=== PATIENT | female | born 1965 | race Caucasian/White ===

== ENCOUNTER 2021-12-17 01:00 | Day surgery (SDC) | payer MEDICARE, MEDICAID, SELFPAY ==
--- NOTE | 2021-12-14 08:13 | PM.IMHP ---
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 She presents for a bulking agent. She understands it will not help her overactive bladder symptoms. Review of Systems Review of Systems: All systems reviewed & are unremarkable except as noted in HPI and below Exam Narrative: No acute distress Normal breathing Alert oriented x3 No urethral mobility Assessment and Plan Assessment and plan (1) Intrinsic sphincter deficiency (ISD): Code(s): N36.42 - Intrinsic sphincter deficiency (ISD) Status: Acute Assessment and Plan: Cystoscopy with injection of bulking agent. Understand the risks of bleeding, infection, lack of efficacy, urinary retention, need for repeat procedures. Agrees to proceed
[2021-12-14 13:59] VITALS: BMI 30.2
--- NOTE | 2021-12-14 14:08 | PC.NURSE ---
Report to the Outpatient Waiting Room, entrance under the green pavilion located off [facility], at time _0830_ on date _[id number]_. OR Time: _1030_. Time changes happen often and if your time is changed the preop area will call you the afternoon before. - You and your visitor will be asked to self-screen and do not enter if you have any COVID symptoms. - Only one visitor and NO children visitors are allowed at this time. - The patient visitor is requested to leave or wait in car when not with patient due to restrictions. - A mask is required within the hospital. Patients may have clear liquids (water, carbonated beverages, clear teas, apple juice) until 3 hours prior to surgery with a maximum of 20 ounces. - No food from midnight until time of surgery Take the following medications with a SIP of water the morning of surgery: __Clonazepam and inhalers Medications to discontinue per physician Mulitvitamin and fish oil. Date to take last dose____Stop today. Please no make-up, nail nepalese, hairspray, perfume, deodorant, or body powder the day of surgery. No jewelry (including any body piercings) or valuables the day of surgery, leave them at home. Please take a shower or bath the night before, or the morning of, surgery with an antibacterial soap. Wear comfortable, loose fitting clothing. - Jewelry must be removed prior to entering the operating room. Rings and piercings that are not removed may be cut off. - The hospital will not accept responsibility for valuables. - Please leave all valuables, including medications, at home the day of surgery. If you are going home after surgery, a licensed uke driver must drive you home. - NO public transportation without another adult. - We recommend that an adult stay with you for 24 hours following discharge. - We also recommend that you do not drive, make important decision, drink alcoholic beverages, or take any drugs that were not prescribed by your health care provider for at least 24 hours after your discharge time. Follow any additional instructions given to you from your surgeon. If you or anyone in your household have experienced Covid symptoms in the past week, please notify your surgeon or the nurse liaison at the phone number below for possible testing. Telephone instructions given to __Patient___and asked if any additional questions and then verbalized understanding. Patient advised to call surgeon office or pre surgery nurse liaison [phone] if any additional questions.
--- NOTE | 2021-12-17 07:13 | WPDHPUPDATE1 ---
History and Physical Update Update Date/Time: 12/17/21 07:13 History and Physical has been reviewed, including an updated exam of the patient. There are NO changes in the patient's condition. Risks, benefits, and alternatives have been discussed and questions answered. Patient agrees to proceed with procedure.
--- NOTE | 2021-12-17 10:09 | WPDANESEPPF ---
Anes - Initial Pre Proc Eval Procedure: Operation Date: 12/17/21 10:30 Proposed Procedures p Cystoscopy, Injection Bulkamid - Jose Roldan MD Date/Time: 12/17/21 10:09 Surgeon: Jose Roldan MD Pre Op Diagnosis: intrinsic sphincter deficiency Patient Data Age: 56 Gender: F Height: 1.57 m Weight: 76.7 kg Allergies Allergy/AdvReac Type Severity Reaction Status Date / Time No Known Allergies Allergy Verified 12/17/21 08:48 Home Medications Medication Instructions Recorded Confirmed Type atorvastatin 80 mg tablet 80 mg PO QPM 12/14/21 12/17/21 History budesonide-formoterol HFA 80 2 inh inhalation BID 12/14/21 12/17/21 History mcg-4.5 mcg/actuation aerosol inhaler clonazepam 0.5 mg tablet 0.5 mg PO TID PRN Anxiety 12/14/21 12/17/21 History divalproex 500 mg tablet,extended 500 mg PO BID 12/14/21 12/17/21 History release 24 hr fluoxetine 20 mg capsule 60 mg PO QAM 12/14/21 12/17/21 History ipratropium 0.5 mg-albuterol 3 mg 3 ml inhalation BID 12/14/21 12/17/21 History (2.5 mg base)/3 mL nebulization soln lisinopril 10 mg tablet 10 mg PO DAILY 12/14/21 12/17/21 History multivitamin 1 tablet PO DAILY 12/14/21 12/17/21 History omega-3 fatty acids-vitamin E 1 cap PO BID 12/14/21 12/17/21 History 1,000 mg capsule trazodone 50 mg tablet 50 mg PO HS 12/14/21 12/17/21 History Patient hx anesthesia problems: none Family hx anesthesia problems: none Results Review: All pre-operative results and documents have been reviewed as part of the pre-operative evaluation. [facility] Past Medical History Medical History (Updated 12/17/21 @ 10:10 by Uriel Perez MD) COPD (chronic obstructive pulmonary disease) Obesity KIRSTEN (obstructive sleep apnea) Social History Social History Smoking packs per day: 1 Smoking cigarettes per day: 20.0 Years smoked: 40 Smoking pack-years: 40.00 Smoking status: Current every day smoker Tobacco type: cigarettes Living arrangements: with family Spiritual care concerns: No Anes - Eval Final PreProcedure Day of Procedure 12/17/21 10:09 Patient weight: obese Heart: regular rate and rhythm Lungs: clear to auscultation Airway: Mallampati scale class II Neurological: alert and oriented Last oral intake: >/= 8 hours ASA classification: III Emergent: no Anesthetic plan: proceed Anesthesia type and monitoring: general GIVS and standard monitoring Results Review: All pre-operative results and documents have been reviewed as part of the pre-operative evaluation. Informed Consent: The patient's anesthetic plan and its attendant risks and benefits were discussed with the patient/family/POA. Questions were solicited and answers provided to the satisfaction of the patient/family/POA.
[2021-12-17] MEDS: ceFAZolin 2 GM/D5W 50 ML 2 GM/50 ML BAG IVPB (10:34)
[2021-12-17] MEDS: LIDOCAINE HCL 2% GEL UROJET 10 ML PKG MUCOUS MEM (10:48)
--- NOTE | 2021-12-17 10:58 | P.OP_ITS ---
Procedure Note - Detailed Date of Procedure 12/17/21 Pre-op Diagnosis intrinsic sphincter deficiency Post-op Diagnosis Same Procedure Performed Cystoscopy with suburethral injection of implant material [id number] Surgeon Jose Roldan MD Anesthesia MAC Indications This is a patient with stress urinary incontinence due to intrinsic sphincter deficiency. They desires surgical correction. They understand the risk of bleeding, and infection, lack of efficacy, need for repeat procedures, obstructive voiding requiring catheterization. They agreed to proceed. Findings Open urethra consistent with intrinsic sphincter deficiency Description of Procedure The patient was correctly identified and informed consent was obtained. They were brought to the operating room. They were given MAC anesthesia. They were placed in the dorsal lithotomy position. They were prepped and draped in a sterile fashion. A time-out performed. Cystoscopy revealed no tumors in the bladder and an open urethra consistent with intrinsic sphincter deficiency. I chose at a site in the mid urethra. It was 2 cm distal bladder neck. I injected the bulking agent circumferentially forming small pillows. I used 1- 1/2 syringe of bulking material total. There was good bulking effect. The bladder was drained partially with a 12 Macedonian red rubber catheter. They were awakened and transferred to the PACU in stable condition. Implants Urethral bulking agent Estimated Blood Loss 1 Drains No Packing No Pathology None sent Complications No immediate complications Condition Stable Disposition PACU
[2021-12-17 11:03] VITALS: BP 132/73; PULSE 83; RESP 14; O2SAT 100
[2021-12-17] MEDS: LACTATED RINGERS 1,000 ML 30 ML IV CONT (11:03)
[2021-12-17 11:30] VITALS: BP 142/80; PULSE 75; RESP 16
== END 2021-12-17 11:52 | disposition home or self-care (01) ==
PROVIDERS: Visit Provider Urology
PROC: 3E0K8GC Introduction of Other Therapeutic Substance into Genitourinary Tract, Via Natural or Artificial Opening Endoscopic (ICD-10-PCS; CPT 51715; principal; 2021-12-17 10:30)
DX: N36.42 Intrinsic sphincter deficiency (ISD) (principal); N39.3 Stress incontinence (female) (male); J44.9 Chronic obstructive pulmonary disease, unspecified; G47.33 Obstructive sleep apnea (adult) (pediatric); E66.9 Obesity, unspecified; Z68.30 Body mass index [BMI] 30.0-30.9, adult; F17.210 Nicotine dependence, cigarettes, uncomplicated; Z79.51 Long term (current) use of inhaled steroids
CPT/HCPCS: 51715; A9270; J0690; J2250; J2405; J2704; J3010; J7120; L8606

== ENCOUNTER 2023-09-02 12:44 | Inpatient (IN) | payer MEDICARE, MEDICAID, SELFPAY ==
[2023-09-02 13:18] VITALS: BP 133/83; PULSE 74; RESP 14; TEMP 36.3; O2SAT 97
--- NOTE | 2023-09-02 13:46 | PC.NURSE ---
Pt arrived at 1300 to 2nd floor. She is here for the swing program for assistance with balance and walking. VSS, no skin issues noted. Pt A/O x3. oriented to call system . Pt's daughter is here with pt. Oriented her to the rapid responce system and fall risks.
[2023-09-02 14:00] VITALS: BP 138/73; PULSE 78; RESP 14; TEMP 36.3; O2SAT 97
[2023-09-02 14:11] VITALS: BMI 29.0
--- NOTE | 2023-09-02 14:41 | PC.NURSE ---
Pt does have type 2 diabetis . Accu checks are BID.
[2023-09-02 16:55] LABS: Glucose Point of Care 93 mg/dl (65-105)
[2023-09-02] MEDS: ATORVASTATIN 40 MG TABLET 80 MG PO (17:25)
[2023-09-02] MEDS: OMEGA 3 POLYUNSAT FATTY ACIDS 1 GM CAP PO (17:25)
[2023-09-02] MEDS: GABAPENTIN 400 MG CAPSULE 1200 MG PO (17:25)
[2023-09-02] MEDS: traZODone HCL 50 MG TABLET 250 MG PO (20:38)
[2023-09-02] MEDS: busPIRone HCL 2.5 MG TABLET PO (20:39)
[2023-09-02] MEDS: busPIRone HCL 2.5 MG TABLET 7.5 MG PO (20:39)
[2023-09-02] MEDS: DIVALPROEX SODIUM ER 250 MG TAB.24H PO (20:40)
[2023-09-02] MEDS: DIVALPROEX SODIUM DR 250 MG TABEC 1500 MG PO (20:41)
[2023-09-02] MEDS: QUEtiapine FUMARATE 25 MG TABLET 50 MG BY MOUTH (20:41)
[2023-09-02 20:56] LABS: Glucose Point of Care 108 mg/dl (65-105)
[2023-09-02] MEDS: ACETAMINOPHEN 500 MG TABLET 1000 MG PO (22:34)
[2023-09-02 23:33] VITALS: BP 142/76; PULSE 78; RESP 17; TEMP 36.2; O2SAT 97
[2023-09-03 05:29] LABS: Hematocrit 38.9 % (35.0-49.0); Hemoglobin 12.5 g/dL (12.0-15.0); Mean Corpuscular HGB Conc 32.1 g/dL (32-36); Mean Corpuscular Hemoglobin 29.1 pg (27.0-31.0); Mean Corpuscular Volume 90.7 fL (78.0-102.0); Mean Platelet Volume 8.5 fl (9.2-11.8); Platelet Count Result 197 K/mm3 (150-420); Red Blood Count 4.29 M/mm3 (4.20-5.40); Red Cell Distribution Width 14.2 % (11.6-14.4)
[2023-09-03 05:39] LABS: Anion Gap 5 mmol/L (4-12); Blood Urea Nitrogen 12 mg/dL (7-18); Calcium 8.3 mg/dL (8.5-10.1); Carbon Dioxide 32 mmol/L (21-32); Chloride 101 mmol/L (98-108); Estimated CRCL calculation 63 ml/min; Estimated Glomerular Filt Rate > 60; Glucose 102 mg/dL (70-99); Osmolality Calculated 285 mOsm/kg (285-295); Potassium 4.2 mmol/L (3.5-5.1); Sodium 138 mmol/L (136-145)
[2023-09-03 07:23] LABS: Glucose Point of Care 102 mg/dl (65-105)
--- NOTE | 2023-09-03 07:37 | PM.IMHP ---
H&P: HPI History of Present Illness Date/Time: 09/03/23 07:37 Chief Complaint: Rehab, weakness Narrative: This is a 58-year-old female with a past medical history significant for ductal cancer of the breast, depression, anxiety, bipolar disorder, COPD, hypertension, GERD, neuropathy, KIRSTEN, and PTSD who presents to [facility] for swing bed after hospitalization at [place] in [place]. For the patient she presented last week after having 6-8 falls at home. Her falls were precipitated by dizziness, right-sided chest pain, and shortness of breath. She denies LOC and denies hitting her head. She lives at home with her 2 sons were able to help get her up from the floor. Review of her chart shows syncopal and stroke workup which was negative. She also states she was told she was diagnosed as a diabetic. Given her weakness and frequent falls therapy recommended fpc. Patient will be admitted under swing bed status in this setting. Review of Systems Review of Systems: All systems reviewed & are unremarkable except as noted in HPI and below PMFSH Past Medical History Medical History (Updated 09/03/23 @ 17:44 by Edith Ruiz APRN) Anxiety Bipolar 1 disorder delivery delivered COPD (chronic obstructive pulmonary disease) Depression Ductal carcinoma of breast GERD (gastroesophageal reflux disease) Neuropathy Obesity KIRSTEN (obstructive sleep apnea) Trigger finger Surgical History Surgical History (Updated 09/03/23 @ 17:29 by Edith Ruiz APRN) H/O elbow surgery H/O left wrist surgery History of appendectomy History of bilateral carpal tunnel release History of bilateral knee replacement Family History Family History Mother Chronic obstructive pulmonary disease Father Acute myocardial infarction Social History Social History (Updated 09/03/23 @ 17:31 by Edith Ruiz APRN) Social History: Patient states she stopped smoking when she was admitted last week 08/27/23. Surrogate decision maker is her daughter, Kira. Full code Smoking packs per day: 1 Smoking cigarettes per day: 20.0 Years smoked: 40 Smoking pack-years: 40.00 Smoking status: Former smoker Tobacco type: cigarettes Second hand tobacco smoke exposure: No Alcohol intake: never Substance use: never Substance use type: does not use Do You Feel Safe in your Home?: Yes Lack of Transportation: No Lack of Food: Never True Current Housing: I Have Housing Concerned About Future Housing: No Difficulty Paying Gas/Electric Bills: No Difficulty Paying for Meds: No Currently Unemployed: No Education: High School Diploma/GED Difficulty w/ Childcare or Family Care: No Living arrangements: with family Additional living arrangements comments: lives with her 2 sons. She is independent of ADLs, she does use a walker, she does not drive. Occupation/Education: unemployed Gender identity (if verbalized by the patient): Female Sexual Orientation (if Verbalized by the Patient): Straight or Heterosexual Spiritual care concerns: No Meds Home Medications and Allergies Home Medications Medication Instructions Recorded Confirmed Type atorvastatin 80 mg tablet 80 mg PO QPM 12/14/21 09/02/23 History divalproex 500 mg tablet,extended 250 mg PO BID 12/14/21 09/02/23 History release 24 hr fluoxetine 20 mg capsule 60 mg PO QAM 12/14/21 09/02/23 History lisinopril 10 mg tablet 10 mg PO DAILY 12/14/21 09/02/23 History multivitamin 1 tablet PO DAILY 12/14/21 09/02/23 History omega-3 fatty acids-vitamin E 1 cap PO BID 12/14/21 09/02/23 History 1,000 mg capsule trazodone 50 mg tablet 250 mg PO HS 12/14/21 09/02/23 History albuterol sulfate 90 mcg/actuation 2 puff inhalation QID PRN 09/02/23 09/02/23 History aerosol inhaler Shortness Of Breath Or Wheezing anastrozole 1 mg tablet 1 mg PO DAILY 09/02/23 09/02/23 His
[2023-09-03 08:00] VITALS: BP 120/68; PULSE 72; RESP 17; TEMP 36.2; O2SAT 98
[2023-09-03] MEDS: OMEGA 3 POLYUNSAT FATTY ACIDS 1 GM CAP PO ×2 (09:53→17:26)
[2023-09-03] MEDS: MULTIVITAMINS THERAPEUTIC TAB (*BKC) 1 TABLET PO (09:53)
[2023-09-03] MEDS: FLUoxetine HCL 20 MG CAPSULE 60 MG PO (09:53)
[2023-09-03] MEDS: busPIRone HCL 2.5 MG TABLET 7.5 MG PO (09:53)
[2023-09-03] MEDS: GABAPENTIN 400 MG CAPSULE 1200 MG PO ×3 (09:53→17:24)
[2023-09-03] MEDS: busPIRone HCL 2.5 MG TABLET PO (09:53)
[2023-09-03 09:54] VITALS: PULSE 72
[2023-09-03] MEDS: ASPIRIN 81 MG ENTERIC TABLET PO (09:54)
[2023-09-03] MEDS: PANTOPRAZOLE 40 MG TABLET PO (09:54)
[2023-09-03] MEDS: lisinopriL 10 MG TABLET PO (09:54)
[2023-09-03] MEDS: METOPROLOL SUCCINATE EXT REL 25 MG TABCR PO (09:54)
[2023-09-03] MEDS: ANASTROZOLE (*CHEMO) 1 MG TABLET PO (09:54)
[2023-09-03] MEDS: buPROPion HCL XL (24 HR) 150 MG TABCR PO (09:54)
--- NOTE | 2023-09-03 10:10 | PHAR ---
VERIFIED WITH [facility] PT TAKES BOTH DEPAKOTE ER 250MG QHS AND DEPAKOTE DR 1500MG QHS. AND TAKES ONLY BUSPIRONE 7.5MG Q12H, NOT THE ADDITIONAL 2.5MG Q12H THAT WAS ENTERED INPT RX.
[2023-09-03 12:04] LABS: Glucose Point of Care 91 mg/dl (65-105)
[2023-09-03 16:00] VITALS: BP 110/74; PULSE 66; RESP 17; TEMP 36.1; O2SAT 96
[2023-09-03 17:00] LABS: Glucose Point of Care 102 mg/dl (65-105)
[2023-09-03] MEDS: ATORVASTATIN 40 MG TABLET 80 MG PO (17:25)
[2023-09-03] MEDS: DIVALPROEX SODIUM DR 250 MG TABEC 1500 MG PO (20:52)
[2023-09-03] MEDS: busPIRone HCL 2.5 MG, busPIRone HCL 5 MG 7.5 MG PO (20:54)
[2023-09-03] MEDS: traZODone HCL 50 MG TABLET 250 MG PO (20:55)
[2023-09-03] MEDS: QUEtiapine FUMARATE 25 MG TABLET 50 MG BY MOUTH (20:55)
[2023-09-03] MEDS: DIVALPROEX SODIUM ER 250 MG TAB.24H PO (20:56)
[2023-09-03 20:57] LABS: Glucose Point of Care 137 mg/dl (65-105)
[2023-09-03 23:56] VITALS: BP 136/76; PULSE 76; RESP 20; TEMP 36.2; O2SAT 95
[2023-09-04 07:25] LABS: Glucose Point of Care 83 mg/dl (65-105)
[2023-09-04 07:28] VITALS: BP 111/76; PULSE 67; RESP 16; TEMP 36.1; O2SAT 95
[2023-09-04] MEDS: ENOXAPARIN 40 MG/0.4 ML SYRINGE SUB-Q (08:04)
[2023-09-04] MEDS: OMEGA 3 POLYUNSAT FATTY ACIDS 1 GM CAP PO ×2 (08:05→17:10)
[2023-09-04] MEDS: PANTOPRAZOLE 40 MG TABLET PO (08:06)
[2023-09-04] MEDS: GABAPENTIN 400 MG CAPSULE 1200 MG PO ×3 (08:06→17:09)
[2023-09-04] MEDS: ASPIRIN 81 MG ENTERIC TABLET PO (08:07)
[2023-09-04] MEDS: busPIRone HCL 2.5 MG, busPIRone HCL 5 MG 7.5 MG PO ×2 (08:07→20:49)
[2023-09-04] MEDS: MULTIVITAMINS THERAPEUTIC TAB (*BKC) 1 TABLET PO (08:07)
[2023-09-04] MEDS: buPROPion HCL XL (24 HR) 150 MG TABCR PO (08:08)
[2023-09-04 08:09] VITALS: PULSE 67
[2023-09-04] MEDS: lisinopriL 10 MG TABLET PO (08:09)
[2023-09-04] MEDS: FLUoxetine HCL 20 MG CAPSULE 60 MG PO (08:09)
[2023-09-04] MEDS: METOPROLOL SUCCINATE EXT REL 25 MG TABCR PO (08:09)
[2023-09-04] MEDS: ANASTROZOLE (*CHEMO) 1 MG TABLET PO (08:10)
[2023-09-04] MEDS: FLUTICASONE/UMECLIDIN/VILANTER 100-62.5-25 MCG ELLIPTA 1 PUFF INHALATION (08:17)
[2023-09-04 11:52] LABS: Glucose Point of Care 107 mg/dl (65-105)
[2023-09-04] MEDS: ACETAMINOPHEN 500 MG TABLET 1000 MG PO ×2 (13:02→20:50)
[2023-09-04 16:00] VITALS: BP 142/68; PULSE 65; RESP 16; TEMP 36.4; O2SAT 96
[2023-09-04] MEDS: ATORVASTATIN 40 MG TABLET 80 MG PO (17:08)
[2023-09-04 17:19] LABS: Glucose Point of Care 115 mg/dl (65-105)
[2023-09-04 20:00] VITALS: PULSE 65; RESP 16; O2SAT 96
[2023-09-04] MEDS: traZODone HCL 50 MG TABLET 250 MG PO (20:47)
[2023-09-04] MEDS: DIVALPROEX SODIUM DR 250 MG TABEC 1500 MG PO (20:48)
[2023-09-04] MEDS: QUEtiapine FUMARATE 25 MG TABLET 50 MG BY MOUTH (20:48)
[2023-09-04 20:52] LABS: Glucose Point of Care 112 mg/dl (65-105)
[2023-09-04] MEDS: DIVALPROEX SODIUM ER 250 MG TAB.24H PO (20:57)
[2023-09-05] VITALS: BP 150/69; PULSE 65; RESP 20; TEMP 36.6; O2SAT 95
[2023-09-05 07:43] LABS: Glucose Point of Care 99 mg/dl (65-105)
[2023-09-05 08:00] VITALS: BP 132/72; PULSE 67; RESP 16; TEMP 36.2; O2SAT 97
[2023-09-05] MEDS: ENOXAPARIN 40 MG/0.4 ML SYRINGE SUB-Q (08:42)
[2023-09-05] MEDS: FLUTICASONE/UMECLIDIN/VILANTER 100-62.5-25 MCG ELLIPTA 1 PUFF INHALATION (08:42)
[2023-09-05] MEDS: FLUoxetine HCL 20 MG CAPSULE 60 MG PO (08:43)
[2023-09-05] MEDS: OMEGA 3 POLYUNSAT FATTY ACIDS 1 GM CAP PO ×2 (08:43→16:41)
[2023-09-05] MEDS: PANTOPRAZOLE 40 MG TABLET PO (08:44)
[2023-09-05] MEDS: GABAPENTIN 400 MG CAPSULE 1200 MG PO ×3 (08:45→16:40)
[2023-09-05] MEDS: lisinopriL 10 MG TABLET PO (08:45)
[2023-09-05] MEDS: buPROPion HCL XL (24 HR) 150 MG TABCR PO (08:45)
[2023-09-05 08:46] VITALS: PULSE 67
[2023-09-05] MEDS: ASPIRIN 81 MG ENTERIC TABLET PO (08:46)
[2023-09-05] MEDS: METOPROLOL SUCCINATE EXT REL 25 MG TABCR PO (08:46)
[2023-09-05] MEDS: ANASTROZOLE (*CHEMO) 1 MG TABLET PO (08:47)
[2023-09-05] MEDS: busPIRone HCL 2.5 MG, busPIRone HCL 5 MG 7.5 MG PO ×2 (08:47→21:00)
[2023-09-05] MEDS: MULTIVITAMINS THERAPEUTIC TAB (*BKC) 1 TABLET PO (08:48)
[2023-09-05 16:00] VITALS: BP 165/96; PULSE 60; RESP 16; TEMP 36; O2SAT 97
[2023-09-05] MEDS: ATORVASTATIN 40 MG TABLET 80 MG PO (16:41)
[2023-09-05] MEDS: DIVALPROEX SODIUM DR 250 MG TABEC 1500 MG PO (20:59)
[2023-09-05] MEDS: traZODone HCL 50 MG TABLET 250 MG PO (21:01)
[2023-09-05] MEDS: QUEtiapine FUMARATE 25 MG TABLET 50 MG BY MOUTH (21:01)
[2023-09-05] MEDS: DIVALPROEX SODIUM ER 250 MG TAB.24H PO (21:02)
[2023-09-05 22:11] VITALS: BP 141/70; PULSE 72; RESP 20; TEMP 36.4; O2SAT 97
[2023-09-06] VITALS: RESP 18
[2023-09-06 07:53] LABS: Glucose Point of Care 111 mg/dl (65-105)
[2023-09-06 08:00] VITALS: BP 145/65; PULSE 78; RESP 14; TEMP 36.6; O2SAT 97
[2023-09-06] MEDS: FLUTICASONE/UMECLIDIN/VILANTER 100-62.5-25 MCG ELLIPTA 1 PUFF INHALATION (10:29)
[2023-09-06] MEDS: OMEGA 3 POLYUNSAT FATTY ACIDS 1 GM CAP PO ×2 (10:30→18:14)
[2023-09-06] MEDS: ENOXAPARIN 40 MG/0.4 ML SYRINGE SUB-Q (10:30)
[2023-09-06] MEDS: busPIRone HCL 2.5 MG, busPIRone HCL 5 MG 7.5 MG PO ×2 (10:31→21:19)
[2023-09-06] MEDS: GABAPENTIN 400 MG CAPSULE 1200 MG PO ×3 (10:31→18:14)
[2023-09-06 10:32] VITALS: PULSE 72
[2023-09-06] MEDS: buPROPion HCL XL (24 HR) 150 MG TABCR PO (10:32)
[2023-09-06] MEDS: METOPROLOL SUCCINATE EXT REL 25 MG TABCR PO (10:32)
[2023-09-06] MEDS: MULTIVITAMINS THERAPEUTIC TAB (*BKC) 1 TABLET PO (10:32)
[2023-09-06] MEDS: lisinopriL 10 MG TABLET PO (10:33)
[2023-09-06] MEDS: ASPIRIN 81 MG ENTERIC TABLET PO (10:33)
[2023-09-06] MEDS: ANASTROZOLE (*CHEMO) 1 MG TABLET PO (10:33)
[2023-09-06] MEDS: FLUoxetine HCL 20 MG CAPSULE 60 MG PO (10:33)
[2023-09-06] MEDS: PANTOPRAZOLE 40 MG TABLET PO (10:34)
[2023-09-06 16:35] VITALS: BP 136/95; PULSE 75; RESP 16; TEMP 36.3; O2SAT 97
[2023-09-06] MEDS: ATORVASTATIN 40 MG TABLET 80 MG PO (18:14)
[2023-09-06] MEDS: ACETAMINOPHEN 500 MG TABLET 1000 MG PO (19:08)
[2023-09-06] MEDS: DIVALPROEX SODIUM DR 250 MG TABEC 1500 MG PO (21:19)
[2023-09-06] MEDS: DIVALPROEX SODIUM ER 250 MG TAB.24H PO (21:20)
[2023-09-06] MEDS: traZODone HCL 50 MG TABLET 250 MG PO (21:20)
[2023-09-06] MEDS: QUEtiapine FUMARATE 25 MG TABLET 50 MG BY MOUTH (21:20)
--- NOTE | 2023-09-06 23:00 | PC.NURSE ---
report to cy manuel
--- NOTE | 2023-09-06 23:20 | PC.NURSE ---
Pt up to the bathroom with the walker and standby assist of one. Pt voided and returned to bed with the walker and standby assist of one. Pt tolerated activity well.
[2023-09-07] VITALS: BP 117/68; PULSE 72; RESP 20; TEMP 36.5; O2SAT 93
--- NOTE | 2023-09-07 01:24 | PC.NURSE ---
Pt up to the bathroom with the walker and standby assist of one. Pt voided and returned to bed with the walker and standby assist of one.
--- NOTE | 2023-09-07 03:10 | PC.NURSE ---
Pt asleep and no signs of discomfort noted.
--- NOTE | 2023-09-07 05:40 | PC.NURSE ---
Pt up to the bathroom with the walker and standby assist of one. Pt voided and returned to bed with the walker and standby assist of one.
--- NOTE | 2023-09-07 06:42 | PC.NURSE ---
Pt asleep and no signs of discomfort noted.
[2023-09-07 08:00] VITALS: BP 120/74; PULSE 78; RESP 14; TEMP 36.8; O2SAT 97
[2023-09-07 08:19] LABS: Glucose Point of Care 98 mg/dl (65-105)
--- NOTE | 2023-09-07 08:25 | P.PNCROSS_ITS ---
Event Note Event Note Event Note: removed accucheck order as patient has not had a blood sugar above 140 sing be ing here.
--- NOTE | 2023-09-07 08:27 | PC.NURSE ---
BS checked this am. Result is 98. Breakfast try is here.
[2023-09-07] MEDS: FLUoxetine HCL 20 MG CAPSULE 60 MG PO (09:37)
[2023-09-07] MEDS: PANTOPRAZOLE 40 MG TABLET PO (09:37)
[2023-09-07] MEDS: ENOXAPARIN 40 MG/0.4 ML SYRINGE SUB-Q (09:37)
[2023-09-07 09:38] VITALS: PULSE 78
[2023-09-07] MEDS: OMEGA 3 POLYUNSAT FATTY ACIDS 1 GM CAP PO ×2 (09:38→17:51)
[2023-09-07] MEDS: METOPROLOL SUCCINATE EXT REL 25 MG TABCR PO (09:38)
[2023-09-07] MEDS: MULTIVITAMINS THERAPEUTIC TAB (*BKC) 1 TABLET PO (09:38)
[2023-09-07] MEDS: lisinopriL 10 MG TABLET PO (09:38)
[2023-09-07] MEDS: ANASTROZOLE (*CHEMO) 1 MG TABLET PO (09:39)
[2023-09-07] MEDS: busPIRone HCL 2.5 MG, busPIRone HCL 5 MG 7.5 MG PO ×2 (09:39→20:50)
[2023-09-07] MEDS: ASPIRIN 81 MG ENTERIC TABLET PO (09:39)
[2023-09-07] MEDS: buPROPion HCL XL (24 HR) 150 MG TABCR PO (09:39)
[2023-09-07] MEDS: GABAPENTIN 400 MG CAPSULE 1200 MG PO ×3 (09:39→17:51)
[2023-09-07] MEDS: FLUTICASONE/UMECLIDIN/VILANTER 100-62.5-25 MCG ELLIPTA 1 PUFF INHALATION (09:40)
[2023-09-07 16:35] VITALS: BP 118/74; PULSE 78; RESP 16; TEMP 36.8; O2SAT 95
[2023-09-07] MEDS: ATORVASTATIN 40 MG TABLET 80 MG PO (17:51)
[2023-09-07] MEDS: traZODone HCL 50 MG TABLET 250 MG PO (20:49)
[2023-09-07] MEDS: DIVALPROEX SODIUM DR 250 MG TABEC 1500 MG PO (20:49)
[2023-09-07] MEDS: DIVALPROEX SODIUM ER 250 MG TAB.24H PO (20:50)
[2023-09-07] MEDS: QUEtiapine FUMARATE 25 MG TABLET 50 MG BY MOUTH (20:50)
--- NOTE | 2023-09-07 23:30 | PC.NURSE ---
Pt up to the bathroom with the walker and standby assist of one. Pt voided and returned to bed with the walker and standby assist of one.
[2023-09-08] VITALS: BP 132/78; PULSE 86; RESP 20; TEMP 36.4; O2SAT 97
--- NOTE | 2023-09-08 02:02 | PC.NURSE ---
Pt up to the bathroom with the walker and standby assist of one. Pt voided and returned to bed with the walker and standby assist of one.
--- NOTE | 2023-09-08 04:07 | PC.NURSE ---
Pt asleep and no signs of discomfort noted.
--- NOTE | 2023-09-08 05:00 | PC.NURSE ---
Pt up to the bathroom with the walker and standby assist of one. Pt voided and returned to the chair with the walker and assist of one.
--- NOTE | 2023-09-08 06:15 | PC.NURSE ---
Pt sitting up in the chair and doesnt voice any c/o discomfort.
[2023-09-08 08:00] VITALS: BP 130/76; PULSE 68; RESP 16; TEMP 36.6; O2SAT 97
[2023-09-08] MEDS: FLUTICASONE/UMECLIDIN/VILANTER 100-62.5-25 MCG ELLIPTA 1 PUFF INHALATION (08:31)
[2023-09-08] MEDS: ENOXAPARIN 40 MG/0.4 ML SYRINGE SUB-Q (08:32)
[2023-09-08 08:33] VITALS: PULSE 68
[2023-09-08] MEDS: METOPROLOL SUCCINATE EXT REL 25 MG TABCR PO (08:33)
[2023-09-08] MEDS: GABAPENTIN 400 MG CAPSULE 1200 MG PO ×3 (08:33→17:17)
[2023-09-08] MEDS: OMEGA 3 POLYUNSAT FATTY ACIDS 1 GM CAP PO ×2 (08:33→17:19)
[2023-09-08] MEDS: lisinopriL 10 MG TABLET PO (08:34)
[2023-09-08] MEDS: busPIRone HCL 2.5 MG, busPIRone HCL 5 MG 7.5 MG PO ×2 (08:34→21:42)
[2023-09-08] MEDS: buPROPion HCL XL (24 HR) 150 MG TABCR PO (08:35)
[2023-09-08] MEDS: PANTOPRAZOLE 40 MG TABLET PO (08:35)
[2023-09-08] MEDS: ANASTROZOLE (*CHEMO) 1 MG TABLET PO (08:35)
[2023-09-08] MEDS: FLUoxetine HCL 20 MG CAPSULE 60 MG PO (08:35)
[2023-09-08] MEDS: ASPIRIN 81 MG ENTERIC TABLET PO (08:36)
[2023-09-08] MEDS: MULTIVITAMINS THERAPEUTIC TAB (*BKC) 1 TABLET PO (08:36)
[2023-09-08 16:00] VITALS: BP 145/78; PULSE 70; RESP 16; TEMP 36.8; O2SAT 98
[2023-09-08] MEDS: ATORVASTATIN 40 MG TABLET 80 MG PO (17:18)
[2023-09-08] MEDS: DIVALPROEX SODIUM ER 250 MG TAB.24H PO (21:38)
[2023-09-08] MEDS: QUEtiapine FUMARATE 25 MG TABLET 50 MG BY MOUTH (21:41)
[2023-09-08] MEDS: traZODone HCL 50 MG TABLET 250 MG PO (21:42)
[2023-09-08] MEDS: DIVALPROEX SODIUM DR 250 MG TABEC 1500 MG PO (21:43)
[2023-09-09] VITALS: BP 131/67; PULSE 79; RESP 16; TEMP 36.9; O2SAT 93
[2023-09-09 08:00] VITALS: BP 130/67; PULSE 70; RESP 16; TEMP 36.6; O2SAT 96
[2023-09-09] MEDS: ENOXAPARIN 40 MG/0.4 ML SYRINGE SUB-Q (08:23)
[2023-09-09] MEDS: GABAPENTIN 400 MG CAPSULE 1200 MG PO ×2 (08:24→12:31)
[2023-09-09] MEDS: busPIRone HCL 2.5 MG, busPIRone HCL 5 MG 7.5 MG PO (08:25)
--- NOTE | 2023-09-09 08:25 | PM.DS ---
DS: Admitting Diagnosis Discharge Date 09/09/2023 Admitting Diagnosis Bipolar Weakness, TIA, DS: Discharge Diagnosis Discharge Diagnosis (1) Weakness: Code(s): R53.1 - Weakness Status: Acute (2) Neuropathy: Code(s): G62.9 - Polyneuropathy, unspecified Status: Acute (3) GERD (gastroesophageal reflux disease): Code(s): K21.9 - Gastro-esophageal reflux disease without esophagitis Status: Acute (4) Bipolar 1 disorder: Code(s): F31.9 - Bipolar disorder, unspecified Status: Acute (5) COPD (chronic obstructive pulmonary disease): Qualifiers: COPD type: emphysema Code(s): J44.9 - Chronic obstructive pulmonary disease, unspecified Status: Acute DS: Summary Hospital Course Reason for hospitalization: Bipolar , Weakness, TIA Hospital Course: This is a 58 year old female that was admitted for swing bed for physical therapy. Patient has participated and she has continued to improve and is ready for discharge. after review of vitals and labs she has remained stable. Patient only complaint is of shoulder pain in which she is going to follow up with her primary care provider and she is going to have care by her son in the home who will assist her with getting dressed and aDLs around the home. Patient states her son who is her caregiver will get her to her appointments and denies any needs from me at this time. Time Spent with Patient Time attestation: Total time spent providing and/or coordinating discharge services: Exam Narrative: General: well appearing, appears stated age. HEENT: normocephalic, atraumatic. Mucous membranes moist. EOMI, PERRLA, bilateral sclera anicteric, no conjunctival injection. Neck supple without JVD, lymphadenopathy, or bruit. missing teeth. Respiratory: clear to auscultation bilaterally. No rales/rhonic/wheezes. Cardiovascular: Regular rate and rhythm, normal S1-S2 upon auscultation. No murmurs, rubs, or clicks. PMI is nondisplaced, capillary refill less than 3 second. Abdomen: Soft, round, no pulsatile masses, nondistended and nontender. No rebound, no guarding. No CVA tenderness, no hepatosplenomegaly. Bowel sounds present to all four quadrants. No high pitch or tinkling sounds, resonant to percussion. Extremities: No cyanosis, clubbing, or edema present. Pulses are palpable 2/2. Active ROM to all four extremities. Neuro: Alert and orientated x 4. PERRLA. Cranial nerves 2-12 intact without focal deficit. Skin: Warm, dry, and intact, without rash, erythema, or lesion. Lines: Incisions: Psych: pleasant, cooperative, normal speech, normal affect, no hallucinations, no dysarthria Discharge Plan Discharge Attending physician on discharge: Markie Stephenson Discharging Clinician: Norberto Chapa Anticipated Discharge Date/Time: 09/09/23 08:20 Patient Disposition: Home, Self-Care Activity: may shower Diet: heart healthy Discharge Instructions: Drink plenty of fluids Make sure that you use your walker Patient Instructions: Antibiotic Form, Weakness (DC), Shoulder Pain (ED), Encephalopathy (DC) Stand Alone Forms: General Discharge Information Follow-up/Referrals: Erwin,Mia [Other] Discharge Medications: Continued gabapentin 600 mg Tablet 1,200 mg PO TID albuterol sulfate 90 mcg/actuation Hfa Aerosol Inhaler 2 puff INHALATION QID PRN (Reason: Shortness Of Breath Or Wheezing) anastrozole 1 mg Tablet 1 mg PO DAILY Adult Low Dose Aspirin 81 mg Tablet 81 mg PO DAILY Atrovent HFA 17 mcg/actuation Hfa Aerosol Inhaler 2 puff INHALATION QID bupropion HCl 150 mg Tablet Extended Release 24 Hr 150 mg PO QAM buspirone 7.5 mg tablet 7.5 mg BID divalproex 500 mg tablet,delayed release (DR/EC) 1,500 mg PO HS Excedrin Migraine 250-250-65 mg Tablet 1 tablet PO Q4-6H PRN (Reason: Pain, Moderate) Excedrin Migraine 250-250-65 m
[2023-09-09] MEDS: FLUoxetine HCL 20 MG CAPSULE 60 MG PO (08:26)
[2023-09-09] MEDS: MULTIVITAMINS THERAPEUTIC TAB (*BKC) 1 TABLET PO (08:26)
[2023-09-09] MEDS: ASPIRIN 81 MG ENTERIC TABLET PO (08:27)
[2023-09-09 08:28] VITALS: PULSE 70
[2023-09-09] MEDS: ANASTROZOLE (*CHEMO) 1 MG TABLET PO (08:28)
[2023-09-09] MEDS: buPROPion HCL XL (24 HR) 150 MG TABCR PO (08:28)
[2023-09-09] MEDS: PANTOPRAZOLE 40 MG TABLET PO (08:28)
[2023-09-09] MEDS: METOPROLOL SUCCINATE EXT REL 25 MG TABCR PO (08:28)
[2023-09-09] MEDS: OMEGA 3 POLYUNSAT FATTY ACIDS 1 GM CAP PO (08:29)
[2023-09-09] MEDS: lisinopriL 10 MG TABLET PO (08:29)
[2023-09-09] MEDS: FLUTICASONE/UMECLIDIN/VILANTER 100-62.5-25 MCG ELLIPTA 1 PUFF INHALATION (08:29)
--- NOTE | 2023-09-09 14:50 | PC.NURSE ---
Discharge instructions given to patient with special emphasis placed on fall prevention, due to patient's admission due to multiple falls. Patient voiced understanding and personal belongings were gathered by nurse and sent with patient at discharge. Patient's sons arrived to pick patient up and one of the sons was wearing only one shoe. Track Service Worker/ nurse asked about this and the son told handbook writer that one of the dogs they own had bit his foot and that he was unable to wear his shoe. Track Service Worker/ nurse asked how many dogs they had and the son told handbook writer that they have 3 pit bull mix dogs. Patient had expressed to handbook writer that some of patient's falls were due to the dogs being in front of or behind her and she would trip over them. Patient also told handbook writer that she had told her sons to stop dragging their mattresses into the living room to play video games because she tripped over the mattress. Track Service Worker/ nurse accompanied patient to the hospital exit, and asked the sons to bring the car up for their mother. The sons got the car and brought it to the door. Track Service Worker/ nurse pushed patient in w/c out onto the drive and noticed that there were 2 very large dogs in the back seat of the car. Patient was assisted out of the w/c and she attempted to get into the back seat of the car and the door was locked. Patient tapped on the window as handbook writer stood back, anxious about the dogs, as one of them had bit the hr director. The son that was not driving yelled at the transit bus driver to unlock the door. The transit bus driver finally unlocked the door and the patient got into the back seat of the car with the dogs. As the car drove away, handbook writer watched as the dogs jumped all over the patient, knocking her around in the seat. Track Service Worker/ nurse notified appropriate entities about handbook writer's concerns about the patient's well being. Patient had also expressed to handbook writer that she was worried that she would have to pay to have her house cleaned because the sons had been at home while she was here for therapy.
--- NOTE | 2023-09-10 09:30 | PC.NURSE ---
Discharge call back complete, phone on chart is that of daughter Eve, she said she is doing ok that she talked to her last night, advised if she has any questions regarding discharge instructions to call us back
== END 2023-09-09 14:50 | disposition home or self-care (01) | DRG 948 ==
PROVIDERS: Nurse Practitioner Family; Admitting Provider Internal Medicine; Visit Provider Internal Medicine
DX: R53.1 Weakness (principal); J44.9 Chronic obstructive pulmonary disease, unspecified; I10 Essential (primary) hypertension; K21.9 Gastro-esophageal reflux disease without esophagitis; R29.6 Repeated falls; G47.33 Obstructive sleep apnea (adult) (pediatric); G62.9 Polyneuropathy, unspecified; F31.9 Bipolar disorder, unspecified; F43.10 Post-traumatic stress disorder, unspecified; F41.9 Anxiety disorder, unspecified; Z96.653 Presence of artificial knee joint, bilateral; Z85.3 Personal history of malignant neoplasm of breast; Z87.891 Personal history of nicotine dependence; Z79.82 Long term (current) use of aspirin
CPT/HCPCS: 36415; 80048; 82948; 83036; 85027; 97110; 97112; 97161; 97165; 97530; 97535; A9270; J1650